=== PATIENT | male | born 1960 | race Caucasian/White ===

== ENCOUNTER 2017-07-23 22:22 | Emergency (ER) | payer SELFPAY ==
[2017-07-23 22:27] VITALS: TEMP 98.6; BMI 32.3
--- NOTE | 2017-07-23 22:36 | PDOC ---
History of Present Illness - General Chief Complaint: Chest Pain Stated Complaint: CHEST PAIN Time Seen by Provider: 07/23/17 22:34 - History of Present Illness Initial Comments: 07/23/17 22:46 The patient is a 56 year old male with a history of HLD, Pre-diabetes who presents for evaluation of chest pain and SOB. The patient reports a 1 day history of sharp sternal chest pain worse with movement and associated with some mild SOB. The patient denies similar symptoms in the past and noted that his pain was worsening prompting his presentation to the ED for evaluation. The patient otherwise denies fevers, chills, nausea, vomiting, abdominal pain, or changes with urination or bowel movements. Past History - Past Medical History Allergies/Adverse Reactions: Allergies Allergy/AdvReac Type Severity Reaction Status Date / Time No Known Allergies Allergy Verified 07/23/17 22:24 Home Medications: Ambulatory Orders Metformin HCl [Metformin HCl ER] 1,000 mg PO BID 07/23/17 COPD: No Diabetes: (pre-diabetic) - Surgical History Appendectomy: Yes - Suicide/Smoking/Psychosocial Hx Smoking History: Never smoked Review of Systems - Review of Systems Comments:: 07/23/17 22:50 Constitutional: No fevers, chills, fatigue, malaise HEENT: No Rhinorrhea, nasal congestion, visual changes Cardiovascular: Chest pain. No syncope, palpitations, lightheadedness Respiratory: SOB. No Cough, Hemoptysis, Gastrointestinal: No Abdominal pain, Nausea, Vomiting, Constipation, Diarrhea, Melena Genitourinary: No Dysuria, Frequency, Urgency, Hesitancy, Hematuria, Flank pain Musculoskeletal: No Myalgia, arthralgia Skin: No rashes, itching, bruising, pallor Neurologic: No Headache, Dizziness, Numbness, Weakness, or Tingling Psychiatric: No Hallucinations. No SI or HI *Physical Exam - Vital Signs Last Vital Signs Temp Pulse Resp BP Pulse Ox 98.6 F 110 H 20 139/97 96 07/23/17 22:24 07/23/17 22:24 07/23/17 22:24 07/23/17 22:24 07/23/17 22:24 - Physical Exam Comments: 07/23/17 22:51 General Appearance: Nourished. No Apparent Distress HEENT: EOMI, DILMA. No Pharyngeal Erythema, Tonsillar Exudate, Tonsillar Erythema Neck: No Cervical Lymphadenopathy Respiratory/Chest: Lungs Clear, Normal Breath Sounds. Reproducible tenderness to palpation along the left sternal border. No Crackles, Rales, Rhonchi, Wheezing Cardiovascular: Regular Rhythm, Regular Rate. No Murmur, Gallops, Rubs Gastrointestinal/Abdominal: Normal Bowel Sounds, Soft. No Guarding, Rebound, Tenderness Musculoskeletal: No CVA Tenderness Extremity: Normal Capillary Refill Integumentary: Normal Color, Dry, Warm Neurologic: Fully Oriented, Alert, Normal Mood/Affect, Normal Response, Heart Score/ECG Review #1 ECG reviewed & interpreted by me at: 23:28 (Tachycardic to 101. ST segment Elevations in leads II, III, aVF) General ECG Interpretation: Sinus Rhythm, Normal Intervals ED Treatment Course - LABORATORY CBC & Chemistry Diagram: 07/23/17 23:00 07/23/17 23:00 Medical Decision Making - Critical Care Time Total Critical Care Time (minutes): 45 Critical Care Statement: The care of this patient involved high complexity decision making to prevent further life threatening deterioration of the patient 's condition and/or to evaluate & treat vital organ system(s) failure or risk of failure. - Medical Decision Making 07/23/17 22:51 The patient is a 56 year old male with a history of HLD, Pre-diabetes who presents for evaluation of chest pain and SOB. Differential includes but is not limited to: ACS, Musculoskeletal, Pneumonia, infectious, metabolic derangement. Given the patient's history and physical exam, we will obtain a cbc , cmp, troponin, ekg, chest plain film to evaluate further for possible etiologies. We will continue to monitor and reassess in the meantime. 07/23/17 23:43 CBC is unremarkable. EKG demonstrates ST elevations in leads II, III, aVF concerning for STEMI. Dr. Mcgregor was contacted at 23:30 and the case was discussed. The patient is to be transferred for cardiac cath with [facility] autoaccepting the transfer. The patient will be started on asa, plavix, and heparin. We discussed the plan and results with the patient who voiced understanding and is agreeable. 07/24/17 00:01 Troponin is elevated to 15.67 *DC/Admit/Observation/Transfer Diagnosis at time of Disposition: Chest pain Qualifiers: Chest pain type: unspecified Qualified Code(s): R07.9 - Chest pain, unspecified STEMI (ST elevation myocardial infarction) Qualifiers: Involved coronary artery: unspecified coronary artery Qualified Code(s): I21.3 - ST elevation (STEMI) myocardial infarction of unspecified site - Discharge Dispostion Disposition: TRANSFER ACUTE CARE/OTHER HOSP Condition at time of disposition: Critical - Referrals - Patient Instructions - Post Discharge Activity - Transfer to Acute Care Facility Receiving Facility: [facility] Accepting Physician:: Auto-Accept
[2017-07-23 23:10] LABS: BASO % 0.5 % (0-2.0); EOS % 0.3 % (0-4.5); HEMATOCRIT 45.4 % (35.4-49); HEMOGLOBIN 15.9 GM/dL (11.7-16.9); LYMPH % 13.1 % (8-40); MCH 29.5 pg (25.7-33.7); MCHC 35.1 g/dl (32.0-35.9); MEAN CELL VOLUME 83.9 fl (80-96); MEAN PLT VOLUME 8.5 fl (7.5-11.1); MONO % 6.4 % (3.8-10.2); NEUT % 79.7 % (42.8-82.8); PLATELET COUNT 194 K/MM3 (134-434); RBC 5.41 M/mm3 (4.00-5.60); RDW 15.3 % (11.9-15.9); WHITE BLOOD COUNT 10.5 K/mm3 (4.0-10.0)
[2017-07-23] MEDS ORDERED: ASPIRIN 81 MG CHEWABLE TABLETS PO ONE (23:22)
--- NOTE | 2017-07-23 23:22 | PDOC ---
Attending Attestation - Resident Resident Name: Delon Maxwell - ED Attending Attestation I have performed the following: I have examined & evaluated the patient, The case was reviewed & discussed with the resident, I agree w/resident's findings & plan, Exceptions are as noted <Rocío Verdni - Last Filed: 07/23/17 23:17> - HPI HPI: 07/24/17 00:00 The patient is a 56 year old male, with a significant past medical history of HLD, Pre-Diabetes who presents to the emergency department with chest pain for the past day. Patient reports midsternal intermittent sharp chest pain, 6/10 in severity, radiating to neck with associated dyspnea. Patient reports chest pain in the past however reports pain has been increasingly persistent within the past day. Upon evaluation, patients vital signs significant for 110 HR. Patient denies palpitations, diaphoresis, headache or dizziness. Patient denies fever, chills, abdominal pain, nausea, vomit, diarrhea or constipation. Patient denies dysuria, frequency, urgency or hematuria. Patient denies sick contacts or recent travel. Allergies: NKA Past surgical history: Appendectomy Social history: None PCP: None - Physicial Exam PE: 07/24/17 00:00 GENERAL: Well developed, well nourished. Awake and alert. No acute distress. HEENT: Normocephalic, atraumatic. PERRLA, EOMI. No conjunctival pallor. Sclera are non- icteric. Moist mucous membranes. Oropharynx is clear. NECK: Supple. Full ROM. No JVD. Carotid pulses 2+ and symmetric, without bruits. No thyromegaly. No lymphadenopathy. CARDIOVASCULAR: +Tachycardic. Regular rhythm. No murmurs, rubs, or gallops. Distal pulses are 2 + and symmetric. PULMONARY: No evidence of respiratory distress. Lungs clear to auscultation bilaterally. No wheezing, rales or rhonchi. ABDOMINAL: Soft. Non-tender. Non-distended. No rebound or guarding. No organomegaly. Normoactive bowel sounds. MUSCULOSKELETAL Normal range of motion at all joints. No bony deformities or tenderness. No CVA tenderness. EXTREMITIES: No cyanosis. No clubbing. No edema. No calf tenderness. SKIN: Warm and dry. Normal capillary refill. No rashes. No jaundice. NEUROLOGICAL: Alert, awake, appropriate. Cranial nerves 2-12 intact. No deficits to light touch and temperature in face, upper extremities and lower extremities. No motor deficits in the in face, upper extremities and lower extremities. Normoreflexic in the upper and lower extremities. Normal speech. Toes are down-going bilaterally. Gait is normal without ataxia. PSYCHIATRIC: Cooperative. Good eye contact. Appropriate mood and affect. - Critical Care Time Total Critical Care Time: 60 Critical Care Statement: The care of this patient involved high complexity decision making to prevent further life threatening deterioration of the patient 's condition and/or to evaluate & treat vital organ system(s) failure or risk of failure. - Medical Decision Making 07/24/17 00:00 11:30 PM Discussed case with Dr. Villagomez (cardiology second operator). Patient to be started on medications. Plavix,, Lipitor, heparin. 11:40 PM Called [facility]- STEMI team. Initiated CODE RED. 11:52 PM Discussed case with [facility]- labor economics teacher. 11:54 PM Transfer team arrived for transfer. 11:[address] Patel accepting physician (Cardiology) at [facility]. 07/24/17 00:01 Critical value of Troponin:15.67 informed by lab. 07/24/17 00:05 Sublingual NG given to patient on stretcher. 07/24/17 00:13 Patient departed ED and is enroute to [facility] for cardiac cath. <Kathrine Jernigan - Last Filed: 07/24/17 00:16>
[2017-07-23] MEDS ORDERED: ASPIRIN 325 MG TABLET ONE (23:28)
[2017-07-23] MEDS ORDERED: ATORVASTATIN CA 80 MG TABLET (FP) PO ONE (23:33)
[2017-07-23] MEDS ORDERED: HEPARIN NA (PORCINE) 5,000 UNITS/ML 1ML VIAL IVPUSH PRN ×2 (23:33)
[2017-07-23] MEDS ORDERED: CLOPIDOGREL BISULFATE 75 MG TABLET (FP) PO ONE (23:37)
[2017-07-23] MEDS ORDERED: HEPARIN NA (PORCINE) 5,000 UNITS/ML 1ML VIAL ONE (23:39)
[2017-07-23] MEDS ORDERED: HEPARIN INFUSION - 25,000 UNITS/500 ML INFUS.BAG IVPB ONE (23:39)
[2017-07-23 23:45] LABS: ALBUMIN 3.8 g/dl (3.4-5.0); ANION GAP 14 (8-16); BILIRUBIN,TOTAL 1.5 mg/dL (0.2-1.0); BLOOD UREA NITROGEN 12 mg/dL (7-18); CALCIUM 8.3 mg/dL (8.5-10.1); CHLORIDE 98 mmol/L (98-107); CO2 22 mmol/L (21-32); CREATININE 1.1 mg/dL (0.7-1.3); SGPT/ALT 50 U/L (12-78); SODIUM 134 mmol/L (136-145)
[2017-07-23] MEDS ORDERED: HEPARIN - 25,000 UNIT in SODIUM CHLORIDE 495 ML IV SCH (23:45)
[2017-07-23] MEDS ORDERED: ATORVASTATIN CA 80 MG TABLET (FP) ONE (23:47)
[2017-07-23] MEDS ORDERED: CLOPIDOGREL BISULFATE 75 MG TABLET (FP) ONE (23:47)
[2017-07-23 23:59] LABS: ALK PHOS 91 U/L (45-117)
[2017-07-24 00:01] LABS: GLUCOSE,RANDOM 390 mg/dL (74-106)
[2017-07-24 00:02] LABS: POTASSIUM 4.5 mmol/L (3.5-5.1); SGOT/AST 148 U/L (15-37)
[2017-07-24] MEDS ORDERED: NITROGLYCERIN SUBLINGUAL 1/150 0.4 MG TAB ONE (00:08)
[2017-07-24 00:16] LABS: INR 0.98 (0.82-1.09); PROTHROMBIN TIME (PATIENT) 11.1 SEC (9.98-11.88)
[2017-07-24 00:18] LABS: ACTIVATED PTT 29.1 SECONDS (26.9-34.4)
[2017-07-24] MEDS ORDERED: NITROGLYCERIN SUBLINGUAL 1/150 0.4 MG TAB SL ONE (00:35)
[2017-07-24 01:19] VITALS: PULSE 95
[2017-07-24 02:14] VITALS: BP 127/94
--- NOTE | 2017-07-24 16:51 | EKG ---
Test Reason : Blood Pressure : / mmHG Vent. Rate : 102 BPM Atrial Rate : 102 BPM P-R Int : 178 ms QRS Dur : 080 ms QT Int : 356 ms P-R-T Axes : 037 018 035 degrees QTc Int : 463 ms SINUS TACHYCARDIA INFERIOR INFARCT , POSSIBLY ACUTE ACUTE ND / STEMI Consider right ventricular involvement in acute inferior infarct ABNORMAL ECG NO PREVIOUS ECGS AVAILABLE Confirmed by MD Jakob, Kristofer ([id number]) on 07/24/2017 4:51:22 PM Referred By: Confirmed By:Kristofer Robert MD
== END 2017-07-24 00:15 | disposition short-term general hospital (02) ==
LOC: JER 22:22
PROC: 3E033GC Introduction of Other Therapeutic Substance into Peripheral Vein, Percutaneous Approach (ICD-10-PCS; principal; 2017-07-23)
DX: I21.3 ST elevation (STEMI) myocardial infarction of unspecified site (principal); E78.5 Hyperlipidemia, unspecified; E78.00 Pure hypercholesterolemia, unspecified; R73.03 Prediabetes
CPT/HCPCS: 36415; 71045-TC-FY; 80053; 82550; 82553; 84484; 85025; 85610; 85730; 93005; 93010; 99285-25; J1644

== ENCOUNTER 2019-01-26 21:35 | Emergency (ER) | payer OTHER ==
[2019-01-26 21:42] VITALS: TEMP 97.3; BMI 25.7
[2019-01-26] MEDS ORDERED: valACYclovir HCL 1000 MG TABLET PO ONE (22:52)
[2019-01-26] MEDS ORDERED: predniSONE 20 MG TABLET (UD) PO ONE (22:52)
[2019-01-26] MEDS ORDERED: ARTIFICIAL TEARS (POLYVINYL ALCOHOL) OPTH DROPS OU ONE (22:53)
--- NOTE | 2019-01-26 23:03 | PDOC ---
History of Present Illness - General Chief Complaint: Facial Droop Stated Complaint: FACIAL DROOP Time Seen by Provider: 01/26/19 22:15 History Source: Patient Exam Limitations: No Limitations - History of Present Illness Initial Comments: 01/26/19 22:54 Source: Patient PCP: Dr. Ruiz in [place] HPI: 58yo M with PMH DM, NC last year requiring PCI at [facility] presenting with 2 days of LEFT sided facial droop. Patient noticed his voice was off, looked in a mirror and noted facial droop on the L side. Denies ANY other neurologic complaints - no weakness, numbness, tingling, change in gait, change in vision, facial sensation, smell, hearing strength. No recent travel, no ticks, no rash, no malaise, no joint pains, no hiking or [place] in the [place]. Never had anything like this before. All: NKDA Meds: ASA 81, Metformin PMH: as above PSH: Appendectomy 2004 Past History - Travel Traveled outside of the country in the last 30 days: No Close contact w/someone who was outside of country & ill: No - Past Medical History Allergies/Adverse Reactions: Allergies Allergy/AdvReac Type Severity Reaction Status Date / Time No Known Allergies Allergy Verified 07/23/17 22:24 Home Medications: Ambulatory Orders metFORMIN HCL [Metformin HCl ER] 1,000 mg PO BID 07/23/17 Dextran 70/Hypromellose [Artificial Tears Eye Drops] 15 ml OP QID PRN #1 bottle 01/26/19 Prednisone [Deltasone] 60 mg PO DAILY #21 tablet 01/26/19 Valacyclovir HCl [Valtrex -] 1,000 mg PO TID #21 tablet 01/26/19 COPD: No Diabetes: (pre-diabetic) - Surgical History Appendectomy: Yes - Psycho Social/Smoking Cessation Hx Smoking History: Never smoked Hx Alcohol Use: No Drug/Substance Use Hx: No Review of Systems - Review of Systems Able to Perform ROS?: Yes Is the patient limited [place]se proficient: Yes Constitutional: No: Chills, Diaphoresis, Fever, Weakness HEENTM: No: Eye Pain, Recent change in vision, Nose Congestion, Throat Swelling Respiratory: No: Cough, Shortness of Breath, Stridor, Wheezing Cardiac (ROS): No: Chest Pain, Irregular Heart Rate, Chest Tightness ABD/GI: No: Constipated, Diarrhea, Nausea, Poor Appetite, Poor Fluid Intake, Vomiting : No: Burning, Dysuria, Discharge, Pain Musculoskeletal: No: Back Pain, Joint Pain, Muscle Pain, Muscle Weakness Integumentary: No: Bruising, Erythema, Lesions, Pruritus, Rash Neurological: No: Headache, Numbness, Seizure, Tingling, Tremors, Weakness Psychiatric: No: Stressors, Mood Swings, Change in Appetite Endocrine: No: Excessive Sweating, Flushing, Change in Weight Hematologic/Lymphatic: No: Anemia, Blood Clots, Easy Bleeding All Other Systems: Reviewed and Negative *Physical Exam - Vital Signs Last Vital Signs Temp Pulse Resp BP Pulse Ox 97.3 F L 105 H 19 164/105 H 100 01/26/19 21:37 01/26/19 21:37 01/26/19 21:37 01/26/19 21:37 01/26/19 21:37 - Physical Exam Comments: 01/27/19 00:47 Vitals during interview 145/80, 70, 14, 100% RA WDWN man, appears stated age, no acute distress MMM, EOMI, NCAT, trachea midline, PERRLA, no rash / erythema or swelling, nontender sinuses CTABL, normal WOB, no wheezes / rales / rhonchi 2+ radial and PT pulses bilaterally Alert and oriented, Cranial nerve 7 palsy with neuro exam otherwise entirely normal CN2-6,8-12 intact, 5+ strength throughout, sensation preserved, normal alternating movements, normal gait, normal [id number], no pronator drift WWP, no clubbing / cyanosis / edema ED Treatment Course - LABORATORY CBC & Chemistry Diagram: 01/26/19 23:11 01/26/19 23:11 Medical Decision Making - Medical Decision Making 01/26/19 22:58 58yo M with PMH DM, NC last year presenting with subacute LEFT sided facial droop with involvement of ipsilateral forehead consistent with Hadley's Palsy. Neuro exam otherwise completely within normal limits. Low suspicion of Lyme tick paralysis, will send titers. DDX: Hadley's, tick paralysis, Zoster Oticus / [place] Nagy, -unlikely CVA given exam. 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 Asymptomatic, no anion gap, no N/V/fatigue/weakness/AMS or other signs of DKA -Instructed pt to discuss DM treatment and sugars with primary care provider, agreed with plan Dispo: Home with PCP followup Discharge - Discharge Information Problems reviewed: Yes Clinical Impression/Diagnosis: Hadley's palsy Condition: Stable Disposition: HOME - Admission No - Additional Discharge Information Prescriptions: Dextran 70/Hypromellose [Artificial Tears Eye Drops] 15 ml OP QID PRN #1 bottle PRN Reason: Dry Eyes Prednisone [Deltasone] 60 mg PO DAILY #21 tablet Valacyclovir HCl [Valtrex -] 1,000 mg PO TID #21 tablet - Follow up/Referral Referrals: [facility] [place] [Provider Group] Richa Albarado MD [Staff Physician] - Dolores Hudson MD [Staff Physician] - CallBack Reminder: Call back for Lyme results - Patient Discharge Instructions Patient Printed Discharge Instructions: DI for Haldey's Palsy Additional Instructions: You have been seen and evaluated in the [facility] Emergency Department for facial droop and diagnosed with Hadley's Palsy. Three medications have been sent to your pharmacy. A steroid (Prednisone), an antiviral (Valtrex), and artificial tears. Please use these as directed for one week. It is important to keep your eyes hydrated since your ability to blink is impaired. It is also important to tape your eye closed at night to avoid damaging your cornea. Please call on Sunday and arrange followup with your primary care doctor ( referral has been given in this packed, call for an appointment) in the next 1- 2 days. Return to the emergency department for any new or concerning symptoms including but not limited to: weakness in your arms / legs, difficulty walking, urinary incontinence, chest pain, or difficulty breathing. - Post Discharge Activity
[2019-01-26] MEDS ORDERED: predniSONE 20 MG TABLET (UD) ONE (23:14)
[2019-01-26] MEDS ORDERED: valACYclovir HCL 500 MG TABLET (FP) ONE (23:15)
[2019-01-26 23:28] LABS: BASO % 0.4 % (0-2.0); EOS % 1.6 % (0-4.5); HEMATOCRIT 49.3 % (35.4-49); HEMOGLOBIN 16.9 GM/dL (11.7-16.9); LYMPH % 20.5 % (8-40); MCH 29.1 pg (25.7-33.7); MCHC 34.4 g/dl (32.0-35.9); MEAN CELL VOLUME 84.8 fl (80-96); MEAN PLT VOLUME 8.4 fl (7.5-11.1); MONO % 5.7 % (3.8-10.2); NEUT % 71.8 % (42.8-82.8); PLATELET COUNT 196 K/MM3 (134-434); RBC 5.82 M/mm3 (4.00-5.60); WHITE BLOOD COUNT 6.7 K/mm3 (4.0-10.0)
[2019-01-27 00:30] LABS: ALBUMIN 3.9 g/dl (3.4-5.0); ALK PHOS 108 U/L (45-117); ANION GAP 10 MMOL/L (8-16); BILIRUBIN,TOTAL 0.8 mg/dL (0.2-1); BLOOD UREA NITROGEN 12.6 mg/dL (7-18); CALCIUM 8.7 mg/dL (8.5-10.1); CHLORIDE 97 mmol/L (98-107); CO2 27 mmol/L (21-32); CREATININE 1.2 mg/dL (0.55-1.3); GLUCOSE,RANDOM 383 mg/dL (74-106); POTASSIUM 4.8 mmol/L (3.5-5.1); SGOT/AST 32 U/L (15-37); SODIUM 134 mmol/L (136-145); TOT PROT 7.4 g/dl (6.4-8.2)
[2019-01-27 00:56] VITALS: BP 143/89; PULSE 95
--- NOTE | 2019-01-27 00:57 | PDOC ---
Documentation entered by Felicity Gray SCRIBE, acting as scribe for Rocío Verdin MD. Rocío Verdin MD: This documentation has been prepared by the Isaac mora Nirvannie, SCRIBE, under my direction and personally reviewed by me in its entirety. I confirm that the documentation accurately reflects all work, treatment, procedures, and medical decision making performed by me. Attending Attestation - Resident Resident Name: Dony Lou - ED Attending Attestation I have performed the following: I have examined & evaluated the patient, The case was reviewed & discussed with the resident, I agree w/resident's findings & plan - HPI HPI: 01/27/19 00:11 The patient is a 58 year old male, with a significant past medical history of DM , CT (s/p stenting), who presents to the emergency department with, 2 days of left facial droop. He denies any LUE or LLE weakness. He denies any chest pain or SOB. - Physicial Exam PE: 01/27/19 00:[address] Lou's physical exam - Medical Decision Making 01/27/19 00:55 IMP ziegler's palsy plan steroids/valtrex/lubricating eye drops,sent Lyme titer and neuro follow up
== END 2019-01-27 00:57 | disposition home or self-care (01) ==
LOC: JER 21:35
DX: G51.0 Bell's palsy (principal); I25.10 Atherosclerotic heart disease of native coronary artery without angina pectoris; I25.2 Old myocardial infarction; Z95.5 Presence of coronary angioplasty implant and graft; E11.9 Type 2 diabetes mellitus without complications; Z79.84 Long term (current) use of oral hypoglycemic drugs
CPT/HCPCS: 36415; 80053; 85025; 86618; 99283-25

== ENCOUNTER 2021-07-10 23:18 | Emergency (ER) | payer OTHER ==
[2021-07-10 23:29] VITALS: BP 137/87; PULSE 88; TEMP 98.6; BMI 31.6
== END 2021-07-11 01:34 | disposition home or self-care (01) ==
LOC: JER 23:18
DX: J33.9 Nasal polyp, unspecified (principal)
CPT/HCPCS: 99282-25